=== PATIENT | female | born 1965 | race African-American/Black ===

== ENCOUNTER 2023-10-02 10:35 | Emergency (ER) | payer MEDICAID ==
[~2023-10-02] VITALS: Ht 165.1 cm; Wt 53.0 kg
[2023-10-02 10:40] VITALS: O2SAT 99
[2023-10-02] MEDS ORDERED: DEXAMETHASONE 10 MG/ML VIAL IV NR (11:15)
[2023-10-02 11:30] VITALS: TEMP 98.2
[2023-10-02] MEDS ORDERED: MANNITOL 12.5G (25%) VIAL 50ML IV NR (11:30)
[2023-10-02 11:53] LABS: BASOPHILS % 0.6 % (0.0-2.0); EOSINOPHILS % 0.4 % (0.0-5.0); HEMATOCRIT. 39.7 % (36.0-48.0); HEMOGLOBIN. 13.6 g/dL (12.0-16.0); LYMPHOCYTES % 19.8 % (20.0-50.0); MEAN CORPUSCULAR HEMOGLOBIN 32.2 pg (28.0-32.0); MEAN CORPUSCULAR HGB CONC 34.4 g/dL (31.0-37.0); MEAN CORPUSCULAR VOLUME 93.9 fL (81.0-99.0); MONOCYTES % 5.8 % (2.0-8.0); NEUTROPHILS % 73.4 % (40.0-76.0); PLATELET 251 x1000/uL (130-400); RED BLOOD CELL COUNT 4.23 mill/uL (4.2-5.4); WHITE BLOOD COUNT 5.8 x1000/uL (4.5-11.0)
[2023-10-02 12:00] VITALS: BP 126/75; PULSE 78; RESP 16
[2023-10-02 12:02] LABS: INDEX HEMOLYSI 1 (1-3); INDEX ICTERIC 1 (1-4); INDEX LIPEMIC 1 (1-3)
[2023-10-02 12:06] LABS: INR 1.1; PROTHROMBIN TIME 11.4 sec (9.6-11.0)
[2023-10-02 12:13] LABS: ALANINE AMINOTRANSFERASE 14 IU/L (13-61); ALBUMIN 3.8 g/dL (3.4-5.0); ASPARTATE AMINOTRANSFERASE 20 IU/L (15-37); BILIRUBIN TOTAL 0.5 mg/dL (0.1-1.0); CARBON DIOXIDE 27 mEq/L (21-32); ETHANOL BLOOD < 10 mg/dL (<10); PROTEIN TOTAL 7.5 g/dL (6.0-8.3)
[2023-10-02 12:37] LABS: TROPONIN I HIGH SENSITIVITY 106 ng/L (<54)
[2023-10-02 12:41] LABS: SODIUM 140 mEq/L (136-145)
[2023-10-02 12:42] LABS: CALCIUM 8.6 mg/dL (8.5-10.1); CHLORIDE 109 mEq/L (98-107); CREATININE 0.6 mg/dL (0.6-1.3); GLUCOSE 118 mg/dL (70-105); POTASSIUM 3.7 mEq/L (3.5-5.1); UREA NITROGEN BLOOD 11 mg/dL (7-21)
== END 2023-10-02 12:10 | disposition short-term general hospital (02) ==
LOC: ER 10:35
DX: I60.9 Nontraumatic subarachnoid hemorrhage, unspecified (principal)
CPT/HCPCS: 80053; 80320; 85025; 85610; 84484; 36415; 71045; 70450; 93005; 99291; J1100; J2150; Z7610 ×2; G0480